=== PATIENT | female | born 2000 | race Caucasian/White ===

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

== ENCOUNTER 2019-02-08 22:20 | Emergency (ER) | payer OTHER ==
[~2019-02-08] VITALS: Ht 162.6 cm; Wt 117.9 kg
[2019-02-08] MEDS ORDERED: IBUPROFEN 600 MG TABLET PO ONE ×2 (23:03→23:30)
--- NOTE | 2019-02-08 23:09 | NUR ---
Patient discharged to home in stable condition. Written and verbal after care instructions given. Patient verbalizes understanding of instruction.
[2019-02-08 23:10] VITALS: BP 125/86
== END 2019-02-08 23:11 | disposition home or self-care (01) ==
LOC: ER 22:21
DX: J03.90 Acute tonsillitis, unspecified (principal)

== ENCOUNTER 2019-03-15 21:45 | Emergency (ER) | payer OTHER ==
[~2019-03-15] VITALS: Ht 162.6 cm; Wt 108.9 kg
[2019-03-15 21:59] VITALS: BP 142/75
[2019-03-15] MEDS ORDERED: IBUPROFEN 600 MG TABLET PO ONE ×2 (22:49→23:00)
== END 2019-03-15 23:05 | disposition home or self-care (01) ==
LOC: ER 21:47
DX: S63.591A Other specified sprain of right wrist, initial encounter (principal); M70.88 Other soft tissue disorders related to use, overuse and pressure other site; Z98.890 Other specified postprocedural states; X50.0XXA Overexertion from strenuous movement or load, initial encounter; Y93.89 Activity, other specified; Y92.89 Other specified places as the place of occurrence of the external cause; Y99.8 Other external cause status

== ENCOUNTER 2019-03-20 13:10 | Emergency (ER) | payer OTHER ==
[~2019-03-20] VITALS: Ht 162.6 cm; Wt 108.9 kg
--- NOTE | 2019-03-20 13:20 | NUR ---
PT ABLE TO WALK INTO ROOM WITH C/C OF LEFT ANKLE INJURY WHILE LIFTING OBJECTS AT HOME YESTERDAY PT ALERT WITH ORIENTATION X 4
[2019-03-20] MEDS ORDERED: IBUPROFEN 600 MG TABLET PO ONE ×2 (13:28→13:30)
[2019-03-20 15:01] VITALS: BP 109/65
--- NOTE | 2019-03-20 15:02 | NUR ---
PT DISCHARGED TO HOME WALKING WITH STEADY GAIT GIVEN ACI AND PRESCRIPTION.
== END 2019-03-20 15:03 | disposition home or self-care (01) ==
LOC: ER 13:15
DX: S93.402A Sprain of unspecified ligament of left ankle, initial encounter (principal); Z98.890 Other specified postprocedural states; W01.0XXA Fall on same level from slipping, tripping and stumbling without subsequent striking against object, initial encounter; Y93.01 Activity, walking, marching and hiking; Y92.89 Other specified places as the place of occurrence of the external cause; Y99.8 Other external cause status
CPT/HCPCS: 73610-TC

== ENCOUNTER 2019-12-10 11:22 | Emergency (ER) | payer SELFPAY ==
[~2019-12-10] VITALS: Ht 167.6 cm; Wt 129.3 kg
[2019-12-10 11:31] VITALS: BP 134/84
== END 2019-12-10 11:43 | disposition home or self-care (01) ==
LOC: ER 11:30
DX: H60.92 Unspecified otitis externa, left ear (principal); Z98.890 Other specified postprocedural states

== ENCOUNTER 2020-01-27 18:35 | Emergency (ER) | payer OTHER, SELFPAY ==
[~2020-01-27] VITALS: Ht 162.6 cm; Wt 113.4 kg
[2020-01-27 18:35] VITALS: BP 157/97
[2020-01-27] MEDS ORDERED: ONDANSETRON 4 MG TAB.RAPDIS SL ONE (19:30)
[2020-01-27] MEDS ORDERED: ONDANSETRON 4 MG TAB.RAPDIS ONE (19:31)
--- NOTE | 2020-01-27 19:32 | NUR ---
COVID AND RAPID STREP SWAB DONE AND SENT TO LAB.
--- NOTE | 2020-01-27 19:40 | NUR ---
[facility] CONTACT INFO: [phone]
--- NOTE | 2020-01-27 19:40 | NUR ---
Patient discharged to home in stable condition. Written and verbal after care instructions given. Patient verbalizes understanding of instruction. Pt ambulatory with a steady gait
== END 2020-01-27 19:42 | disposition home or self-care (01) ==
LOC: ER 18:44
DX: J03.90 Acute tonsillitis, unspecified (principal); R11.0 Nausea; R50.9 Fever, unspecified; R52 Pain, unspecified; Z20.828 Contact with and (suspected) exposure to other viral communicable diseases
CPT/HCPCS: 86403-TC; Q0162; U0003-CS

== ENCOUNTER 2023-11-21 02:33 | Emergency (ER) | payer MEDICAID, SELFPAY ==
[~2023-11-21] VITALS: Ht 162.6 cm; Wt 99.8 kg
[2023-11-21 02:51] VITALS: TEMP 98.1
[2023-11-21 03:22] LABS: APPEARANCE,URINE SLIGHTLY CLOUDY (CLEAR); BILIRUBIN,URINE NEGATIVE (NEGATIVE); BLOOD, URINE 1+ Ery/uL (NEGATIVE); COLOR,URINE YELLOW (YELLOW); KETONES,URINE NEGATIVE (NEGATIVE); LEUKOCYTE ESTERASE ,URINE 2+ (NEGATIVE); NITRITE, URINE NEGATIVE (NEGATIVE); PROTEIN,URINE NEGATIVE (NEGATIVE); UGLUCOSE NEGATIVE (NEGATIVE); UROBILINOGEN,URINE 0.2 EU/dL (0.2)
[2023-11-21 03:23] LABS: ADD URINE CULTURE YES; BACTERIA,URINE Rare /HPF (None Seen); PREGNANCY TEST URINE QUAL NEGATIVE (NEGATIVE); SQUAMOUS EPITHELIAL CELL,UR Few /HPF (None Seen)
[2023-11-21] MEDS ORDERED: NITR100C6 PO (03:36)
[2023-11-21] MEDS ORDERED: NITROFURANTOIN/MONOHYDRATE MACROCRYSTALS 100 MG CAPSULE ONE (03:39)
[2023-11-21] MEDS ORDERED: PHENAZOPYRIDINE HCL 200 MG TABLET ONE (03:40)
[2023-11-21 03:44] VITALS: BP 128/75; O2SAT 100
[2023-11-21] MEDS: NITROFURANTOIN/MONOHYDRATE MACROCRYSTALS 100 MG CAPSULE PO ONE (03:44)
[2023-11-21] MEDS: PHENAZOPYRIDINE HCL 200 MG TABLET PO ONE (03:44)
== END 2023-11-21 03:44 | disposition home or self-care (01) ==
LOC: ER 02:34
DX: N39.0 Urinary tract infection, site not specified (principal)
CPT/HCPCS: 81001; 84703-TC; 87086-TC

== ENCOUNTER 2024-02-01 17:14 | Emergency (ER) | payer SELFPAY ==
[~2024-02-01] VITALS: Ht 162.6 cm; Wt 111.1 kg
[~2024-02-01 17:14] MED LIST: NITR100C6 PO
[2024-02-01] MEDS ORDERED: AMOX-430 PO (17:33)
[2024-02-01 17:43] VITALS: BP 125/79; TEMP 98.1; O2SAT 100
== END 2024-02-01 17:44 | disposition home or self-care (01) ==
LOC: ER 17:16
DX: H92.01 Otalgia, right ear (principal); Z98.890 Other specified postprocedural states; Z79.899 Other long term (current) drug therapy

== ENCOUNTER 2024-04-27 18:38 | Emergency (ER) | payer SELFPAY ==
[~2024-04-27] VITALS: Ht 162.6 cm; Wt 113.4 kg
[~2024-04-27 18:38] MED LIST changes: +AMOX-430 PO
[2024-04-27 18:58] VITALS: BP 150/92; TEMP 98.5
[2024-04-27 19:40] LABS: PREGNANCY TEST URINE QUAL NEGATIVE (NEGATIVE)
[2024-04-27 19:41] LABS: APPEARANCE,URINE SLIGHTLY CLOUDY (CLEAR); BILIRUBIN,URINE NEGATIVE (NEGATIVE); BLOOD, URINE TRACE-INTA Ery/uL (NEGATIVE); COLOR,URINE YELLOW (YELLOW); KETONES,URINE TRACE mg/dL (NEGATIVE); LEUKOCYTE ESTERASE ,URINE 2+ (NEGATIVE); NITRITE, URINE NEGATIVE (NEGATIVE); PROTEIN,URINE NEGATIVE (NEGATIVE); UGLUCOSE NEGATIVE (NEGATIVE); UROBILINOGEN,URINE 0.2 EU/dL (0.2)
[2024-04-27 20:01] LABS: ADD URINE CULTURE YES; BACTERIA,URINE 1+ /HPF (None Seen); WBC,URINE 21-50 /HPF (0-3)
[2024-04-27] MEDS ORDERED: PHEN-704 PO (20:38)
[2024-04-27] MEDS ORDERED: NITR100C6 PO (20:38)
[2024-04-27 20:40] VITALS: O2SAT 98
== END 2024-04-27 20:41 | disposition home or self-care (01) ==
LOC: ER 18:58
DX: N39.0 Urinary tract infection, site not specified (principal); Z86.69 Personal history of other diseases of the nervous system and sense organs
CPT/HCPCS: 81001; 84703-TC

== ENCOUNTER 2024-07-13 10:55 | Emergency (ER) | payer SELFPAY ==
[~2024-07-13 10:55] MED LIST changes: +PHEN-704 PO
== END 2024-07-13 11:11 | disposition left against medical advice (07) ==
LOC: ER 11:00
DX: Z53.21 Procedure and treatment not carried out due to patient leaving prior to being seen by health care provider (principal)